=== PATIENT | female | born 1960 | race Caucasian/White ===

== ENCOUNTER 2017-08-28 17:30 | Emergency (ER) | payer OTHER ==
[~2017-08-28] VITALS: Ht 162.6 cm; Wt 74.8 kg
[~2017-08-28 17:30] MED LIST: ALBUTEROL0.09 MG/A1 INH; AMOXIL500 MG PO; HYDROXYZINE50 MG PO; MOTRIN 600 MG600 MG PO; MUCINEX ER600 MG PO; OXYCODONE HYDROC5 MG PO; PREDNISONE 20MG20 MG PO; PREDNISONE10 MG PO; TESSALON PERLE100 MG PO; ZITHROMAX250 MG PO
[2017-08-28 17:37] VITALS: BP 137/88
--- NOTE | 2017-08-28 18:16 | ED NOSE COMPLAINT ---
History of Present Illness General Chief Complaint: Epistaxis/Nasal Foreign Body Stated Complaint: NOSE BLEED Vital Signs & Intake/Output Vital Signs & Intake/Output Vital Signs Date Time Temp Pulse Resp B/P B/P Pulse O2 O2 Flow FiO2 Mean Ox Delivery Rate 08/28 1737 99.7 92 18 137/88 97 Room Air Room Air Allergies Coded Allergies: NO KNOWN ALLERGIES (07/16/14) Reconcile Medications Albuterol Sulfate (Albuterol Sulfate Hfa) 90 MCG HFA.AER.AD 2-4 PUFF INH Q4-6 PRN PRN SHORTNESS OF BREATH 90 MCG PER PUFF Amoxicillin (Amoxil) 500 MG CAP 1 TAB PO TID BRONCHITIS Azithromycin (Zithromax) 250 MG TABLET 1 TAB PO DAILY BRONCHITIS Benzonatate (Tessalon Perle) 100 MG SGL 1 CAP PO TID PRN COUGH Guaifenesin (Mucinex) (Unknown Strength) TAB.ER.12H (Unknown Dose) PO Q4H PRN MUCUS (Reported) Ibuprofen (Motrin 600 MG Tab) 600 MG TABLET 1 TAB PO Q6P PRN PAIN Oxycodone Hydrochloride 5 MG TAB 1 TAB PO Q8H PRN PAIN (Reported) Prednisone 20 MG TABLET 1 TAB PO BID bronchitis Triage Note: TRIAGE: 57 Y/O FEMALE PRESENTS C/O EPISTAXIS SINCE THIS MORNING. Past History Travel History Traveled to [place] past 21 day No Medical History Neurological: NONE EENT: NONE Cardiovascular: hypertension, myocardial infarction Respiratory: NONE Gastrointestinal: NONE Hepatic: NONE Renal: NONE Musculoskeletal: BACK PAIN DDD Psychiatric: NONE Endocrine: NONE Surgical History Surgical History: non-contributory Psychosocial History What is your primary language E[place] Tobacco Use: Quit >30 days ago ETOH Use: occasional use Illicit Drug Use: cocaine Departure Departure Condition: Stable Referrals: Elias Meade MD (PCP/Family) Departure Forms: Customer Survey General Discharge Information
== END 2017-08-28 18:20 | disposition admitted as inpatient to this hospital (09) ==
LOC: ERH 17:30
DX: R04.0 Epistaxis (principal)